=== PATIENT | female | born 1985 | race African-American/Black ===

== ENCOUNTER 2024-08-17 03:14 | Emergency (ER) | payer SELFPAY ==
[~2024-08-17] VITALS: Ht 175.3 cm; Wt 59.0 kg
[2024-08-17 03:25] VITALS: O2SAT 97
[2024-08-17] MEDS: BACITRACIN ZINC OINT UDPKT TOP ONE (04:15)
[2024-08-17] MEDS: LIDOCAINE HCL/EPINEPHRINE 1%-EPI 1:100,000 20ML VIAL INFIL ONE (04:15)
[2024-08-17] MEDS: TETANUS, DIPHTHERIA, PERTUSSIS VAC/PF 0.5ML (>10YR OLD) IM ONE (05:11)
[2024-08-17] MEDS: KETOROLAC 30MG/ML VIAL IM ONE (05:13)
[2024-08-17 06:12] VITALS: BP 111/75; PULSE 69; RESP 16; TEMP 36.8; O2SAT 100
== END 2024-08-17 06:22 | disposition home or self-care (01) ==
LOC: ER 03:45
DX: S71.111A Laceration without foreign body, right thigh, initial encounter (principal); W19.XXXA Unspecified fall, initial encounter; Y93.89 Activity, other specified; Y92.89 Other specified places as the place of occurrence of the external cause; Y99.8 Other external cause status
CPT/HCPCS: 81025; 90715; 12002; 90471; 96372; 99284; J1885; J2004; Z7610 ×2

== ENCOUNTER 2024-08-31 01:00 | Emergency (ER) | payer SELFPAY ==
[~2024-08-31] VITALS: Ht 175.3 cm; Wt 59.0 kg
[2024-08-31 01:04] VITALS: TEMP 36.7; O2SAT 99
[2024-08-31 05:28] VITALS: BP 109/70; PULSE 61; RESP 18; O2SAT 100
== END 2024-08-31 05:31 | disposition home or self-care (01) ==
LOC: ER 01:00
DX: S71.111D Laceration without foreign body, right thigh, subsequent encounter (principal); X58.XXXD Exposure to other specified factors, subsequent encounter
CPT/HCPCS: 99281; Z7610